=== PATIENT | male | born 1940 | race Caucasian/White ===

== ENCOUNTER 2017-01-27 07:54 | Emergency (ER) | payer OTHER ==
[~2017-01-27] VITALS: Ht 182.9 cm; Wt 89.0 kg
[2017-01-27 07:57] VITALS: Ht 182.9 cm; Wt 89.0 kg
--- NOTE | 2017-01-27 09:21 | RADRPT ---
PROCEDURE: XR left ankle. CLINICAL INDICATION: Injury TECHNIQUE: Three views are available for review. COMPARISON: None available FINDINGS: There is an acute oblique fracture of the distal fibula. There is an indeterminate age avulsion off the medial malleolus. The osseous structures are otherwise unremarkable. The joints are unremarkabl e. There is soft tissue swelling lateral to the lateral malleolus. IMPRESSION: Acute oblique fracture of the distal fibula. Soft tissue swelling lateral to the lateral malleolus. Indeterminate age avulsion off the medial malleolus. Recommendations: Clinical correlation RPTAT: HGDB .Aleksey Jackson MD, Date Time Electronically viewed and signed by .Aleksey Jackson MD, on 01/27/2017 09:21 .B/
--- NOTE | 2017-01-27 09:27 | RADRPT ---
PROCEDURE: XR left foot. CLINICAL INDICATION: Foot pain TECHNIQUE: Three views are available for review. COMPARISON: None available FINDINGS: There is a 5mm posterior calcaneal spur. There is a hallux valgus deformity. This is associated with HV angle (63 degrees degrees), MT angle( 17 degrees degrees), lateral angulation of the proximal ph alanyx, osteophyte and 1st MT-PP joint narrowing. There are hammertoe deformities. The osseous struc tures are otherwise normal in mineralization, architecture and alignment. There is an acute oblique distal fibular fracture. The joints are unremarkable. The soft tissues are unremarkable. IMPRESSION: 5mm posterior calcaneal spur. Hallux valgus deformity Hammertoe deformities Acute oblique distal fibular fracture RPTAT: HGDB .Aleksey Jackson MD, Date Time Electronically viewed and signed by .Aleksey Jackson MD, on 01/27/2017 09:26 .B/
--- NOTE | 2017-01-27 09:28 | RADRPT ---
PROCEDURE: XR left knee. CLINICAL INDICATION: Knee pain TECHNIQUE: Three-view are available for review. COMPARISON: None available FINDINGS: There is mild to moderate osteoarthrosis involving the medial tibial femoral compartment, lateral ti bial femoral compartment and patellofemoral compartment. This is associated with joint space narrowi ng, subchondral sclerosis and osteophytosis. There is otherwise normal mineralization, architecture and alignment. No fractures are identified. No osseous lesions are identified. The soft tissues are unremarkable. 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 RPTAT: HGDB .Aleksey Jackson MD, MD Date Time Electronically viewed and signed by .Aleksey Jackson MD, on 01/27/2017 09:27 .B/
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
[2017-01-27] MEDS ORDERED: LIDOCAINE 1% (MDV) 20 ML INJ SC ONE (11:00)
[2017-01-27] MEDS ORDERED: ACET500C5 PO (11:20)
[2017-01-27] MEDS ORDERED: BACITUD TOP (11:22)
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
== END 2017-01-27 11:32 | disposition home or self-care (01) ==
LOC: FTE 07:54
DX: S01.81XA Laceration without foreign body of other part of head, initial encounter (principal); S82.432A Displaced oblique fracture of shaft of left fibula, initial encounter for closed fracture; S80.212A Abrasion, left knee, initial encounter; V23.4XXA Motorcycle driver injured in collision with car, pick-up truck or van in traffic accident, initial encounter
CPT/HCPCS: 70450; 70486; 73562; 73610

== ENCOUNTER 2017-01-27 18:44 | Emergency (ER) | payer OTHER ==
[~2017-01-27] VITALS: Ht 180.3 cm; Wt 86.3 kg
[~2017-01-27 18:44] MED LIST: ACET500C5 PO; BACITUD TOP
[2017-01-27 18:50] VITALS: Ht 180.3 cm; Wt 86.3 kg
--- NOTE | 2017-01-27 20:07 | ERD ---
ER Documentation Chief Complaint Date/Time DATE: 01/27/17 TIME: 20:05 Chief Complaint WANTS SOFT SPLINT CAST REFITTED STATES ITS TOO HIGH BEHIND KNEE. HPI Patient is a 76-year-old male who presents because of a splint issue. The patient was seen earlier today and was diagnosed with an ankle fracture. He had a posterior ankle splint applied but claims that it is "too high behind my knee". The patient once it redone. He is using crutches currently. He has no other complaints and just wants the splint redone. ROS All systems reviewed and are negative except as per history of present illness. Medications Home Meds Active Scripts Bacitracin* (Bacitracin Oint (UD)*) 1 Applic Oint, 1 APPLIC TOP ONCE, #14 PKT APPLY TO Prov:KASEY KELLY PA-C 01/27/17 Acetaminophen* (Tylophen*) 500 Mg Capsule, 1 CAP PO Q6H Y for PAIN AND OR ELEVATED TEMP, #20 CAP Prov:KASEY KELLY PA-C 01/27/17 Allergies Allergies: Coded Allergies: No Known Allergy (Unverified , 01/27/17) PMhx/Soc Medical and Surgical Hx: pt denies Medical Hx, pt denies Surgical Hx Hx Alcohol Use: No Hx Substance Use: No Hx Tobacco Use: No Smoking Status: Never smoker FmHx Family History: No diabetes Physical Exam Vitals Vital Signs Date Time Temp Pulse Resp B/P Pulse Ox O2 Delivery O2 Flow Rate FiO2 01/27/17 18:50 99.7 96 18 126/73 94 Physical Exam Const: No acute distress Head: Atraumatic Eyes: Normal Conjunctiva ENT: Normal External Ears, Nose and Mouth. Neck: Full range of motion..~ No meningismus. Resp: Clear to auscultation bilaterally Cardio: Regular rate and rhythm, no murmurs Abd: Soft, non tender, non distended. Normal bowel sounds Skin: No petechiae or rashes Back: No midline or flank tenderness Ext: Splint on the left lower extremity Neur: Awake and alert Psych: Normal Mood and Affect Procedures/MDM Splint Note Type: Posterior and sugar tong applied Location: Left lower extremity Indication: Left ankle fracture Splint Assessment: Neurovascularly intact post splint placement with good fit. Patient is a 76-year-old male presents for a redo of his left ankle splint. The old splint was removed and a sugar tong and posterior splint were applied. This feels better and the patient is currently using his crutches. The patient will be discharged and can follow-up with orthopedic surgery for potential fixation. Departure Diagnosis: Primary Impression: Ankle fracture Encounter type: sequela Laterality: left Qualified Code: S82.892S - Ankle fracture, left, sequela Additional Impression: Pain of left leg Condition: Fair Patient Instructions: Treating Ankle Fractures Referrals: Your doctor Additional Instructions: SPECIALIST: YOU HAVE A MEDICAL CONDITION WHICH REQUIRES YOU TO SEE A SPECIALIST WITHIN THE NEXT 1-2 DAYS. PLEASE FOLLOW UP WITH YOUR PRIMARY PHYSICIAN FOR REFFERAL.IF YOU DO NOT HAVE A PRIMARY CARE PHYSICIAN AND/OR YOU CAN NOT AFFORD TO SEE A PHYSICIAN THE FOLLOWING RESOURCES HAVE BEEN SUPPLIED TO YOU. IT IS YOUR RESPONSIBILITY TO BE SEEN BY THE SPECIALIST DES KEEN MD January 27, 2017 20:07
== END 2017-01-27 19:22 | disposition home or self-care (01) ==
LOC: E/R 18:44
DX: S82.892S Other fracture of left lower leg, sequela (principal); M79.605 Pain in left leg; X58.XXXS Exposure to other specified factors, sequela
CPT/HCPCS: 99283

== ENCOUNTER 2018-08-01 06:31 | Emergency (ER) | END 2018-08-01 09:53 | disposition home or self-care (01) ==

== ENCOUNTER 2018-11-26 06:57 | Emergency (ER) | payer OTHER ==
[~2018-11-26] VITALS: Wt 84.1 kg
[2018-11-26 06:58] VITALS: BP 141/78; PULSE 65; RESP 20
[2018-11-26] MEDS ORDERED: IBUP-1561 PO (12:14)
--- NOTE | 2018-11-26 14:01 | ERD ---
ER Documentation Chief Complaint Chief Complaint l. hand pain s/p trip and fall yesterday HPI 78-year-old right handed male patient with no significant past medical history presents to the ED complaining of left hand pain that started after he accidentally fell and use his left hand to catch his fall. Denies any head or neck injuries. Denies any chills, nausea, vomiting, diarrhea, neck stiffness, loss sensation, loss of range of motion. ROS All systems reviewed and are negative except as per history of present illness. Medications Home Meds Active Scripts Ibuprofen* (Motrin*) 400 Mg Tab, 400 MG PO Q6, #30 TAB take with food Prov:KASEY KELLY PA-C 11/26/18 Bacitracin* (Bacitracin Oint (UD)*) 1 Applic Oint, 1 APPLIC TOP ONCE, #14 PKT APPLY TO Prov:KASEY KELLY PA-C 01/27/17 Acetaminophen* (Tylophen*) 500 Mg Capsule, 1 CAP PO Q6H PRN for PAIN AND OR ELEVATED TEMP, #20 CAP Prov:KASEY KELLY PA-C 01/27/17 Allergies Allergies: Coded Allergies: No Known Allergy (Unverified , 08/01/18) PMhx/Soc Medical and Surgical Hx: pt denies Medical Hx, pt denies Surgical Hx History of Surgery: Yes (hernia repair) Anesthesia Reaction: No Hx Neurological Disorder: No Hx Respiratory Disorders: No Hx Cardiac Disorders: No Hx Psychiatric Problems: No Hx Miscellaneous Medical Probl: No Hx Alcohol Use: No Hx Substance Use: No Hx Tobacco Use: No Smoking Status: Never smoker FmHx Family History: No diabetes, No coronary disease Physical Exam Vitals Vital Signs Date Temp Pulse Resp B/P (MAP) Pulse Ox O2 O2 Flow FiO2 Time Delivery Rate 11/26/18 97.7 65 20 141/78 98 06:58 (99) Physical Exam Const: [id number], well-nourished. In no acute distress. Head: Atraumatic, normocephalic Eyes: Normal Conjunctiva without injection ENT: Normal external ear, nose and mouth. Neck: Full range of motion. No meningismus. Resp: Clear to auscultation bilaterally. No wheezing, rhonchi, rales, or crackles. No accessory muscle use. No retractions. Cardio: Regular rate and rhythm, no murmurs Skin: No petechiae or rashes Back: No midline tenderness. No CVA tenderness. Ext: No cyanosis, or edema. Cap refill less than 2 seconds. Distal pulses intact bilaterally. Tenderness to palpation of the fifth metatarsal of the left hand. Ecchymosis noted over the dorsal aspect of patient's left hand. No erythem. Full range of motion of the DIP, PIP, MCP joints bilaterally. Full range of motion of the bilateral wrists with flexion, extension, medial and lateral deviation. Neur: Awake and alert. Normal gait and coordination. Muscle strength 5/5. Sensation intact bilaterally. Psych: Normal Mood and Affect Procedures/MDM 78-year-old male patient who is right-handed, presents to ED complaining of a left hand injury. Patient is afebrile and nontoxic-appearing. Patient blood pressure is 141/78. Blood Pressure Assessment: Patient's blood pressure was elevated (>120/80) but appears stable without evidence of hypertension emergency or urgency. The patient was counseled about the risks of hypertension and urged to pursue outpatient monitoring and therapy within a week with their primary care physician. Patient is placed in a ulnar gutter splint. Splint Assessment: Neurovascularly intact pre and post splint placement with good fit. IMPRESSION: 1. Acute transverse posteriorly displaced fracture of the base of the fifth metacarpal with marked overlying soft tissue swelling. 2. Otherwise unremarkable images of the left hand. Discussed this patient with Dr. No, my supervising physician due to patient's posteriorly displaced fracture of the base of the fifth metacarpal finding on the x-ray. Patient is appropriate for outpatient management however should follow-up with a hand surgeon. No reduction needed at ths time. Patient's extremity symptoms have stabilized while they have been evaluated in the department and are appropriate for outpatient follow up. No evidence of compartment syndrome, neurologic injury, vascular injury, open joint, open fracture, tendon laceration, septic arthritis, osteomyelitis, DVT, foreign body, or other emergent conditions. Diagnosis: Closed Hand Fracture Discharge medications: Ibuprofen Follow up with primary care physician in 1-2 days referral to see a hand surgeon. Instructed patient to return to the ED sooner for any worsening symptoms. Patient's questions were answered. Patient is hemodynamically stable. Patient understood and agreed with discharge plan. Patient discharged stable. Disclaimer: Inadvertent spelling and grammatical errors are likely due to EHR/dictation software use and do not reflect on the overall quality of patient care. Also, please note that the electronic time recorded on this note does not necessarily reflect the actual time of the patient encounter. Departure Diagnosis: Primary Impression: Closed hand fracture Encounter type: initial encounter Laterality: left Qualified Codes: S62.92XA - Unspecified fracture of left wrist and hand, initial encounter for closed fracture Condition: Stable Patient Instructions: Fracture, Hand (Closed) Referrals: [facility] YOU HAVE RECEIVED A MEDICAL SCREENING EXAM AND THE RESULTS INDICATE THAT YOU DO NOT HAVE A CONDITION THAT REQUIRES URGENT TREATMENT IN THE EMERGENCY DEPARTMENT. FURTHER EVALUATION AND TREATMENT OF YOUR CONDITION CAN WAIT UNTIL YOU ARE SEEN IN YOUR DOCTORS OFFICE WITHIN THE NEXT 1-2 DAYS. IT IS YOUR RESPONSIBILITY TO MAKE AN APPOINTMENT FOR FOLOW-UP CARE. IF YOU HAVE A PRIMARY DOCTOR --you should call your primary doctor and schedule an appointment IF YOU DO NOT HAVE A PRIMARY DOCTOR YOU CAN CALL OUR PHYSICIAN REFERRAL HOTLINE AT IF YOU CAN NOT AFFORD TO SEE A PHYSICIAN YOU CAN CHOSE FROM THE FOLLOWING [facility] [address] [facility]. [facility] [address] [facility] [facility] [address] [facility] [facility] [address] [facility]. [facility] [address] [facility]. [facility]. [address] [facility] YOU HAVE RECEIVED A MEDICAL SCREENING EXAM AND THE RESULTS INDICATE THAT YOU DO NOT HAVE A CONDITION THAT REQUIRES URGENT TREATMENT IN THE EMERGENCY DEPARTMENT. FURTHER EVALUATION AND TREATMENT OF YOUR CONDITION CAN WAIT UNTIL YOU ARE SEEN IN YOUR DOCTORS OFFICE WITHIN THE NEXT 1-2 DAYS. IT IS YOUR RESPONSIBILITY TO MAKE AN APPOINTMENT FOR FOLOW-UP CARE. IF YOU HAVE A PRIMARY DOCTOR --you should call your primary doctor and schedule and appointment IF YOU DO NOT HAVE A PRIMARY DOCTOR YOU CAN CALL OUR PHYSICIAN REFERRAL HOTLINE AT . IF YOU CAN NOT AFFORD TO SEE A PHYSICIAN YOU CAN CHOSE FROM THE FOLLOWING [facility] INSTITUTIONS: [facility] [address] [place] [address] [facility] [address] [place] [address] [facility] [address] [place] [address] [facility] Urgent Care 7 a.m.- 11 p.m. Every Day of the Week NO APPOINTMENT OR AUTHORIZATION NEEDED SO [facility] Hours: Mon-Fri 9:00 AM - 5:00 PM Additional Instructions: Call your primary care doctor TOMORROW for an appointment during the next 2-3 days for a referral to see a hand surgeon.See the doctor sooner or return here if your condition worsens before your appointment time. KASEY KELLY PA-C Nov 26, 2018 14:01
== END 2018-11-26 12:27 | disposition home or self-care (01) ==
LOC: FTE 06:57
DX: S62.317A Displaced fracture of base of fifth metacarpal bone, left hand, initial encounter for closed fracture (principal); W01.0XXA Fall on same level from slipping, tripping and stumbling without subsequent striking against object, initial encounter; Y92.9 Unspecified place or not applicable